=== PATIENT | female | born 1930 | race Caucasian/White ===

== ENCOUNTER 2016-08-28 10:35 | Outpatient (RCR) | payer MEDICARE ==
[~2016-08-28 10:35] MED LIST: CALC-80; FOLI1TAB7; IBAN2.5T; LEVE750T16; VIT1CAPS9
== END 2016-08-28 16:00 | disposition home or self-care (01) ==
LOC: WOUNDCARE 10:35
PROVIDERS: ATTEND Surgery
DX: D48.5 Neoplasm of uncertain behavior of skin (principal); G60.9 Hereditary and idiopathic neuropathy, unspecified; S09.93XA Unspecified injury of face, initial encounter
CPT/HCPCS: 11100; 99212